=== PATIENT | female | born 1970 | race Asian ===

== ENCOUNTER 2022-08-10 05:05 | Inpatient (IN) | payer MEDICAID ==
[~2022-08-10] VITALS: Ht 162.6 cm; Wt 42.6 kg
[2022-08-10] MEDS ORDERED: ZOLPIDEM TARTRATE 10 MG TABLET PO PRN (08:45)
[2022-08-10] MEDS ORDERED: LORazepam 2 MG TABLET PO PRN (08:45)
[2022-08-10] MEDS ORDERED: HALOPERIDOL 5 MG TABLET PO PRN (08:45)
[2022-08-10 10:48] VITALS: BP 116/82
[2022-08-10] MEDS ORDERED: GuaiFENesin/D-METHORPHAN [SUGAR-FREE] 200-20MG/10 ML SYRUP UDCUP PO PRN (13:45)
[2022-08-10] MEDS ORDERED: ALBUTEROL SULFATE HFA 90 MCG/PUFF 8 GM INHALER IH PRN (13:45)
[2022-08-10] MEDS ORDERED: CloNIDine HCL 0.1 MG TABLET PO PRN (13:45)
[2022-08-10] MEDS ORDERED: LOPERAMIDE HCL 2 MG CAPSULE PO PRN (13:45)
[2022-08-10] MEDS ORDERED: MAGNESIUM HYDROXIDE SUSPENSION 30 ML UDCUP PO PRN (13:45)
[2022-08-10] MEDS ORDERED: MAG HYDROX/AL HYDROX/SIMETH ES 30 ML SUSPENSION UDCUP PO PRN (13:45)
[2022-08-10] MEDS ORDERED: DOCUSATE SODIUM 100 MG CAPSULE PO PRN (13:45)
[2022-08-10] MEDS ORDERED: IBUPROFEN 400 MG TABLET PO PRN (13:45)
[2022-08-10] MEDS ORDERED: ACETAMINOPHEN 325 MG TABLET PO PRN (13:45)
[2022-08-10] MEDS ORDERED: NICOTINE 14 MG/24 HOUR PATCH TD PRN (13:45)
[2022-08-10] MEDS ORDERED: PETROLATUM,WHITE 28 GM JELLY TP PRN (13:45)
[2022-08-10] MEDS ORDERED: ONDANSETRON HCL 4 MG TABLET PO PRN (13:45)
[2022-08-10 20:58] VITALS: BP 118/78
[2022-08-11 08:48] VITALS: BP 126/75
[2022-08-11] MEDS: DULoxetine HCL 30 MG CAPSULE PO SCH ×2 (08:52→09:00)
[2022-08-11 20:34] VITALS: BP 114/75
[2022-08-12 08:38] VITALS: BP 110/78
[2022-08-12] MEDS: DULoxetine HCL 30 MG CAPSULE PO SCH (09:00)
[2022-08-13] MEDS: DULoxetine HCL 30 MG CAPSULE PO SCH ×2 (08:38→08:43)
[2022-08-13 08:52] VITALS: BP 126/83
[2022-08-13 20:53] VITALS: BP 114/78
[2022-08-14] MEDS: RisperiDONE 1 MG TABLET PO SCH ×2 (09:00→20:32)
[2022-08-14] MEDS: DULoxetine HCL 30 MG CAPSULE PO SCH (09:00)
[2022-08-14 16:51] VITALS: BP 100/71
[2022-08-14 20:28] VITALS: BP 100/71
[2022-08-15 07:56] LABS: APPEARANCE,URINE CLEAR (CLEAR); BILIRUBIN,URINE NEGATIVE (NEGATIVE); GLUCOSE, URINE (UA) NEGATIVE (NEGATIVE); KETONES,URINE NEGATIVE (NEGATIVE); LEUKOCYTE ESTERASE ,URINE MODERATE (NEGATIVE); NITRATE,URINE NEGATIVE (NEGATIVE); OCCULT BLOOD,URINE NEGATIVE (NEGATIVE); PROTEIN,URINE NEGATIVE (NEGATIVE); UROBILINOGEN,URINE <=1.0 mg/dL (<=1.0)
[2022-08-15 08:11] LABS: BACTERIA,URINE Rare /HPF (None Seen); RBC,URINE None Seen /HPF (0-2)
[2022-08-15 08:12] LABS: AMPHET/METH SCREEN,URINE NEGATIVE (NEGATIVE); BARBITURATE SCREEN, URINE NEGATIVE (NEGATIVE); BENZODIAZEPINES SCREEN,URINE NEGATIVE (NEGATIVE); CANNABINOID SCREEN,URINE NEGATIVE (NEGATIVE); COCAINE SCREEN,URINE NEGATIVE (NEGATIVE); METHADONE SCREEN, URINE NEGATIVE (NEGATIVE); OPIATE SCREEN,URINE NEGATIVE (NEGATIVE); PHENCYCLIDINE SCREEN,URINE NEGATIVE (NEGATIVE); SQUAMOUS EPITHELIAL CELL,UR Rare /LPF (None Seen)
[2022-08-15] MEDS ORDERED: DiphenhydrAMINE HCL 50 MG/ML VIAL ONE (08:44)
[2022-08-15] MEDS ORDERED: HALOPERIDOL LACTATE 5 MG/ML VIAL ONE (08:44)
[2022-08-15] MEDS ORDERED: LORazepam 2 MG/ML VIAL ONE (08:44)
[2022-08-15] MEDS ORDERED: LORazepam 2 MG/ML VIAL IM ONE ×2 (08:45→17:00)
[2022-08-15] MEDS ORDERED: DiphenhydrAMINE HCL 50 MG/ML VIAL IM ONE ×2 (08:45→17:00)
[2022-08-15] MEDS ORDERED: HALOPERIDOL LACTATE 5 MG/ML VIAL IM ONE ×2 (08:45→17:00)
[2022-08-15] MEDS: RisperiDONE 1 MG TABLET PO SCH ×3 (09:00→21:17)
[2022-08-15] MEDS: DULoxetine HCL 30 MG CAPSULE PO SCH (09:00)
[2022-08-15 23:30] VITALS: BP 108/71
[2022-08-16] MEDS: DULoxetine HCL 30 MG CAPSULE PO SCH (08:38)
[2022-08-16] MEDS: RisperiDONE 1 MG TABLET PO SCH ×2 (08:38→20:39)
[2022-08-16 16:06] VITALS: BP 120/67
[2022-08-16 21:04] VITALS: BP 128/70
[2022-08-17] MEDS: DULoxetine HCL 30 MG CAPSULE PO SCH (08:02)
[2022-08-17] MEDS: RisperiDONE 1 MG TABLET PO SCH ×2 (08:02→21:10)
[2022-08-17 22:43] VITALS: BP 131/75
[2022-08-18 08:15] VITALS: BP 102/67
[2022-08-18] MEDS: RisperiDONE 1 MG TABLET PO SCH ×2 (09:00→20:25)
[2022-08-18] MEDS: DULoxetine HCL 30 MG CAPSULE PO SCH (09:00)
[2022-08-18 20:12] VITALS: BP 111/83
[2022-08-19] MEDS: DULoxetine HCL 30 MG CAPSULE PO SCH (08:24)
[2022-08-19] MEDS: RisperiDONE 1 MG TABLET PO SCH ×2 (08:24→20:10)
[2022-08-19 08:26] VITALS: BP 137/72
[2022-08-19 22:09] VITALS: BP 137/72
[2022-08-20] MEDS: RisperiDONE 1 MG TABLET PO SCH ×2 (08:10→21:00)
[2022-08-20] MEDS: DULoxetine HCL 30 MG CAPSULE PO SCH (08:10)
[2022-08-20 08:28] VITALS: BP 105/71
[2022-08-20 20:18] VITALS: BP 112/74
[2022-08-21] MEDS: DULoxetine HCL 30 MG CAPSULE PO SCH ×2 (08:20→09:30)
[2022-08-21] MEDS: RisperiDONE 1 MG TABLET PO SCH ×3 (08:20→20:29)
[2022-08-21 08:43] VITALS: BP 101/61
[2022-08-21 16:27] VITALS: BP 100/60
[2022-08-22 03:58] VITALS: BP 102/62
[2022-08-22] MEDS: DULoxetine HCL 30 MG CAPSULE PO SCH (08:31)
[2022-08-22] MEDS: RisperiDONE 1 MG TABLET PO SCH (08:31)
[2022-08-22 08:33] LABS: BASOPHILS % (AUTO) 0.6 % (0.0-2.0); EOSINOPHILS % (AUTO) 1.6 % (1.0-6.0); HEMATOCRIT 38.7 % (36-46); LYMPHOCYTES # (AUTO) 2.7 K/uL (1.0-4.8); MEAN CORPUSCULAR HEMOGLOBIN 31.6 pg (26.0-34.0); MEAN CORPUSCULAR HGB CONC 33.7 G/dL (31.0-37.0); MEAN CORPUSCULAR VOLUME 94 fL (80-100); MONOCYTES # (AUTO) 0.4 K/uL (0.1-1.0); MONOCYTES % (AUTO) 7.2 % (2.0-9.0); NEUTROPHILS # (AUTO) 2.6 K/uL (1.8-7.7); NEUTROPHILS % (AUTO) 44.6 % (40.0-70.0); PLATELET COUNT (AUTO) 313 K/uL (150-450); RED BLOOD CELL COUNT(AUTO) 4.13 MIL/uL (4.00-5.20); RED CELL DISTRIBUTION WIDTH 12.9 % (11.5-14.5)
[2022-08-22 08:47] VITALS: BP 102/68
[2022-08-22 08:50] LABS: ALANINE AMINOTRANSFERASE 42 U/L (12-78); ALBUMIN 3.4 g/dL (3.4-5.0); ALKALINE PHOSPHATASE 50 U/L (46-116); ANION GAP 8 mmol/L (8-16); ASPARTATE AMINOTRANSFERASE 31 U/L (15-37); BILIRUBIN,TOTAL 0.5 mg/dL (0.1-1.0); CALCIUM, TOTAL 9.1 mg/dL (8.8-10.5); CARBON DIOXIDE 27 mmol/L (22-29); CHLORIDE 103 mmol/L (98-107); CHOL/HDL RATIO 4.5 (3.9-5.7); CHOLESTEROL 194 mg/dL (131-200); CREATININE 0.44 mg/dL (0.60-1.30); FREE T4 (FREE THYROXINE) 1.12 ng/dL (0.76-1.46); GLOMERULAR FILTR. RATE CALC > 60 mL/min (>60); GLUCOSE,RANDOM 117 mg/dL (70-110); HCG,QUANTITATIVE 4 mIU/mL (0-6); HDL CHOLESTEROL 43 mg/dL (40-60); HEMOGLOBIN A1C 5.8 % (3.8-5.6); LDL CHOL (CALC.) 130 mg/dL (0-130); POTASSIUM 3.8 mmol/L (3.5-5.1); SODIUM SERUM 138 mmol/L (136-145); THYROID STIMULATING HORMONE 1.17 uIU/mL (0.36-3.74); TOTAL PROTEIN, SERUM 7.1 g/dL (6.4-8.2); TRIGLYCERIDES 105 mg/dL (15-150)
[2022-08-22] MEDS ORDERED: DULO-114 PO ×2 (08:54→09:19)
[2022-08-22] MEDS ORDERED: RISP1TAB48 PO (08:54)
[2022-08-22] MEDS ORDERED: RISP1TAB98 PO (09:19)
== END 2022-08-22 09:30 | disposition home or self-care (01) | DRG 750 ==
LOC: B2S 09:53 → B3A 08-15 17:15
PROVIDERS: ADMIT Psychiatry & Neurology Psychiatry; ATTEND Psychiatry & Neurology Psychiatry
DX: F25.1 Schizoaffective disorder, depressive type (principal); E78.5 Hyperlipidemia, unspecified; G47.00 Insomnia, unspecified; F10.10 Alcohol abuse, uncomplicated; Y90.9 Presence of alcohol in blood, level not specified; Z79.899 Other long term (current) drug therapy
CPT/HCPCS: 80053; 80061; 80307; 81001; 83036; 84439; 84443; 84702; 84703; 85025; 86592; 87086; 87186; G0480; J1200; J1630; J2060